=== PATIENT | male | born 1990 | race African-American/Black ===

== ENCOUNTER 2017-03-14 20:30 | Emergency (ER) | payer OTHER ==
[~2017-03-14] VITALS: Ht 175.3 cm; Wt 74.8 kg
[2017-03-14] MEDS ORDERED: ONDANSETRON 2MG/ML, 2ML ONE (20:48)
[2017-03-14] MEDS ORDERED: MORPHINE SULFATE 4 MG/ML, 1ML ONE (20:48)
[2017-03-14] MEDS ORDERED: DIPH,PERTUSS(ACELL),TET VAC/PF 0.5 ML IM-VACC ONE ×2 (20:49→21:00)
[2017-03-14] MEDS ORDERED: CEFAZOLIN PMX 1GM/50ML 50 ML ONE (20:50)
[2017-03-14] MEDS ORDERED: MORPHINE SULFATE 4 MG/ML, 1ML IVPush PRN (21:00)
[2017-03-14] MEDS ORDERED: CEFAZOLIN PMX 1GM/50ML 50 ML IVPB ONE (21:00)
[2017-03-14] MEDS ORDERED: ONDANSETRON 2MG/ML, 2ML IVPush ONE (21:00)
[2017-03-14 21:06] LABS: HEMOGLOBIN 16.3 g/dL (13.7-18.0); WHITE BLOOD COUNT 9.6 x10^3/uL (3.4-10)
[2017-03-14 21:17] LABS: BLOOD UREA NITROGEN 11 mg/dL (7-18)
[2017-03-14] MEDS ORDERED: BACITRACIN ZINC OINT 500U/GM, 0.9 GM ONE ×2 (22:06→22:08)
[2017-03-14 22:29] VITALS: BP 134/78
== END 2017-03-14 22:32 | disposition home or self-care (01) ==
LOC: ED 20:59
DX: S92.254 Nondisplaced fracture of navicular [scaphoid] of right foot (principal); S92.24 Fracture of medial cuneiform; W34.00XA Accidental discharge from unspecified firearms or gun, initial encounter; Y93.89 Activity, other specified; Y99.8 Other external cause status; Y92.89 Other specified places as the place of occurrence of the external cause
CPT/HCPCS: 29515; 36415; 73552; 73630; 80048; 82040; 85025; 90471; 90715; 96365; 96375; 99285; J0690; J2405